=== PATIENT | female | born 1965 | race Caucasian/White ===

== ENCOUNTER → 2025-01-15 12:00 | Outpatient (BNV) | payer MEDICARE, MEDICAID, SELFPAY | PROVIDERS: Visit Provider Psychiatry & Neurology Psychiatry | DX: F32.A Depression, unspecified (principal); F43.89 Other reactions to severe stress; R53.83 Other fatigue; F45.42 Pain disorder with related psychological factors | CPT/HCPCS: 99213; 99214 ==

== ENCOUNTER 2025-01-25 11:00 | Outpatient (RCR) | payer MEDICARE, SELFPAY ==
[2025-01-05 11:57] VITALS: BMI 33.0
[2025-01-05 11:58] VITALS: BP 136/74; PULSE 64; TEMP 36.5
--- NOTE | 2025-01-05 13:27 | PC.ADMIT ---
Patient is a 59 year old female who was referred to [facility] by [facility] where she was admitted initially to CCU for 2 days s/p impulsive intentional overdose with 20 tabs (600 mg) of Morphine in the context of feeling overwhelmed with caring for her elderly mother with no support from her siblings. Patient was transferred to inpatient LOC on [facility] unit from 11/24-12/03/24. Patient reports hospitalization was helpful. Patient reports her 90 year old mother is in her own apartment living on her own. Patient stated her siblings have been more supportive in helping with their mother since her discharge from inpatient LOC. Patient stated, My sister is helping more for the two weeks that I am here. I told my sisters they would have to take care of appointments and anything else during this next two weeks. We have an aid coming in 2 hours a week and hoping to split the two hours into two days . Patient is alert and oriented x4. She is calm and cooperative. She presented with depressed mood and anxious affect. She denied SI, no HI. She was given a copy of her safety plan if needed. Patient reports history of chronic back pain and all over arthritis pain. Patient utilizes a cane for ambulation. Reports having a Sacral nerve stimulator implant for her back which she stated is helpful and is prescribed Buprenorphine weekly patches along with Tylenol and Motrin for pain. Patient reports she has an upcoming appointment for a Synvisc injection in her R knee for pain which she has had in the past and has been successful lasting 4 years the last time she had the injection. Medications updated with [facility] discharge paperwork and with patient's VNA Natacha Heath. Patient reports taking medications as prescribed
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
--- NOTE | 2025-01-07 16:13 | HO.PHP ---
Pt's case has been opened and reviewed in treatment teams.
--- NOTE | 2025-01-15 19:25 | HO.PHPPROGNO ---
Subjective Subjective Date of Service: 01/15/25 Reason For Visit: SI Interim History: It's been pretty good up until yesterday Updates curriculum writer on interim events, chronic stressors, caregiver fatigue, frustration with 2 sisters. Living with one sister who is helping now, and another sister who is also more involved with mother's care now since patient was hospitalized. Denies any hopelessness or SI. No thoughts of harming self or others. Medication Compliance: Yes Side effects from medications: No Attending Groups: Yes Review of Systems Acute medical concerns: No Mental Status Exam Mental Status Exam Narrative: Alert, oriented, in no acute distress. Calm, cooperative, engaged. No psychomotor agitation or neurovegetative retardation. Eye contact maintained. Mood depressed, reactive irritability, affect constricted. Speech normal. Thought process linear, coherent. Thought content related to stressors, transient impulsiveness, denies hopelessness, denies SI or HI. No paranoia or delusional content elicited. No evidence of psychosis. Insight and judgment - fair but adequate. Diagnostics Vital Signs (24Hr): BMI result Body Mass Index 33.0 Assessment & Plan Assessment & Plan (1) Depressive disorder: Status: Acute Code(s): F32.A - Depression, unspecified (2) Other acute reactions to stress: Status: Acute Code(s): F43.89 - Other reactions to severe stress (3) Caregiver with fatigue: Status: Acute Code(s): R53.83 - Other fatigue Plan continue PHP increase Lamcital to 75 mg qd continue sertraline 150 mg qd continue nortiptyline 20 mg qhs (consider whether switching off TCA due to impulsive suicidality) continue regular medications for now Routine lab work as indicated EKG, routine for baseline QTc for medication considerations as indicated UDS as indicated MassPat reviewed VS reviewed: afebrile, BP 136/74;?64 bpm Continue to monitor Patient educated on: diagnosis and medication risk/benefits Informed Consent: understands Reason for contiued partial hosp. stay Substantial Risk for: inability to function, rapid decompensation and med/psych decompensation Certification I certify that partial hospital treatment is medically necessary due to the symptoms and problems resulting from the patient's mental illness and the failure to treat the patient at the partial hospital level of care would likely result in the patient requiring inpatient psychiatric care which could not be prevented at a less intensive level of care. Total time managing care of this patient today __30__ minutes. Discharge Plan Discharge Attending provider: Rosi Lay Medications: New nicotine 21 mg/24 hr patch 24 hour 1 patch transdermal DAILY Qty: 1 0RF Rx Instructions: remove patch every night nicotine (polacrilex) 2 mg lozenge 2 mg buccal Q4H PRN (Reason: nicotine cravings) Qty: 72 0RF Continued sertraline 100 mg tablet 150 mg PO DAILY 30 Days Qty: 45 0RF Rx Instructions: Take one and a half tablet daily. No Action atorvastatin 80 mg tablet 80 mg PO DAILY acetaminophen 500 mg Tablet 1,000 mg PO BID PRN (Reason: Pain) albuterol sulfate 90 mcg/actuation Hfa Aerosol Inhaler 2 puff INHALATION Q4H PRN (Reason: SOB) buprenorphine 10 mcg/hour Patch Weekly 1 patch TRANSDERMAL Q7D aspirin 81 mg Capsule 81 mg PO DAILY ibuprofen 800 mg tablet 800 mg PO Q6H PRN (Reason: Pain) lamotrigine 25 mg Tablet 50 mg PO BID Patient Comments: Per VNA increased to 25 mg two tabs BID. lorazepam 0.5 mg Tablet 1 mg PO BEDTIME PRN (Reason: Anxiety) Patient Comments: Per VNA changed to 2 tabs daily at bedtime. Rx Instructions: 2 tabs daily at bedtime. nortriptyline 10 mg capsule 20 mg PO DAILY lisinopril 40 mg tablet 40 mg PO DAILY naloxone 4 mg/actuation [place],Non-Aerosol 4 mg INTRANASAL Q2M Rx Instructions: spray 1 dose every two to three minutes into ONE nostril; alternate nostrils w each dose until help arrives. Stand Alone Forms: Patient Portal Discharge page Print Language: Icelandic
--- NOTE | 2025-01-22 14:17 | HO.PHP ---
This justowriter operator reached out to [facility] with an PRAVIN inquiring about Shayna's check-in OP therapy she has attended. Staff at [facility] stated they could put a priority on an intake for a hospital discharge, but they could not assign a permanent therapist any sooner than the list she is on. This justowriter operator was assured she would continue to be followed by the current person on a check-in status until this takes place.
--- NOTE | 2025-01-22 19:02 | HO.PHPPROGNO ---
Subjective Subjective Date of Service: 01/22/25 Reason For Visit: SI Interim History: Started modafinil, she did find the ability to focus on tasks very helpful, but felt perhaps was a little too strong, felt weird which lasted into the evening and made onset of sleep more difficult. Does feel her mood is much better . She expressed interest in alternative plan to move to short acting stimulant like Ritalin. Denies any hopelessness or SI. No thoughts of harming self or others. Medication Compliance: Yes Side effects from medications: No Attending Groups: Yes Review of Systems Acute medical concerns: No Mental Status Exam Mental Status Exam Narrative: Alert, oriented, in no acute distress. Calm, cooperative, engaged. No psychomotor agitation or neurovegetative retardation. Eye contact maintained. Mood depressed, less irritable, affect brighter. Speech normal. Thought process linear, coherent. Thought content related to stressors, denies hopelessness, denies SI or HI. No paranoia or delusional content elicited. No evidence of psychosis. Insight and judgment - fair but adequate. Diagnostics Vital Signs (24Hr): BMI result Body Mass Index 33.0 Assessment & Plan Assessment & Plan (1) Depressive disorder: Status: Acute Code(s): F32.A - Depression, unspecified (2) Other acute reactions to stress: Status: Acute Code(s): F43.89 - Other reactions to severe stress (3) Caregiver with fatigue: Status: Acute Code(s): R53.83 - Other fatigue Plan continue PHP stop modafinil start Ritalin 2.5-5 mg qd-bid for cognition, focus/attention, funcitoning and general augmentation of depression increase Lamcital to 75 mg qd continue sertraline 150 mg qd continue nortiptyline 20 mg qhs (consider whether switching off TCA due to impulsive suicidality) continue regular medications for now Routine lab work as indicated EKG, routine for baseline QTc for medication considerations as indicated UDS as indicated MassPat reviewed VS reviewed: afebrile, BP 136/74;?64 bpm Continue to monitor Patient educated on: diagnosis and medication risk/benefits Informed Consent: understands Reason for contiued partial hosp. stay Substantial Risk for: inability to function and med/psych decompensation Certification I certify that partial hospital treatment is medically necessary due to the symptoms and problems resulting from the patient's mental illness and the failure to treat the patient at the partial hospital level of care would likely result in the patient requiring inpatient psychiatric care which could not be prevented at a less intensive level of care. Total time managing care of this patient today __30__ minutes. Discharge Plan Discharge Attending provider: Rosi Lay Medications: New nicotine 21 mg/24 hr patch 24 hour 1 patch transdermal DAILY Qty: 1 0RF Rx Instructions: remove patch every night nicotine (polacrilex) 2 mg lozenge 2 mg buccal Q4H PRN (Reason: nicotine cravings) Qty: 72 0RF lamotrigine 25 mg tablet 75 mg PO DAILY 14 Days Qty: 42 0RF lamotrigine 100 mg tablet 100 mg PO DAILY Qty: 30 0RF Rx Instructions: (start once Rx for 75 mg daily is completed) Continued atorvastatin 80 mg tablet 80 mg PO DAILY acetaminophen 500 mg Tablet 1,000 mg PO BID PRN (Reason: Pain) albuterol sulfate 90 mcg/actuation Hfa Aerosol Inhaler 2 puff INHALATION Q4H PRN (Reason: SOB) buprenorphine 10 mcg/hour Patch Weekly 1 patch TRANSDERMAL Q7D aspirin 81 mg Capsule 81 mg PO DAILY lamotrigine 25 mg Tablet 50 mg PO BID Patient Comments: Per VNA increased to 25 mg two tabs BID. lorazepam 0.5 mg Tablet 1 mg PO BEDTIME PRN (Reason: Anxiety) Patient Comments: Per VNA changed to 2 tabs daily at bedtime. Rx Instructions: 2 tabs daily at bedtime. nortriptyline 10 mg capsule 20 mg PO DAILY lisinopril 40 mg tablet 40 mg PO DAILY sertraline 100 mg tablet 150 mg PO DAILY 30 Days Qty: 45 0RF Rx Instructions: Take one and a half tablet daily. ibuprofen 800 mg tablet 800 mg PO Q6H PRN (Reason: Pain) 15 Days Qty: 42 0RF naloxone 4 mg/actuation [place],Non-Aerosol 4 mg INTRANASAL Q2M Qty: 2 0RF Rx Instructions: spray 1 dose every two to three minutes into ONE nostril; alternate nostrils w each dose until help arrives. Stand Alone Forms: Patient Portal Discharge page Patient Education: Depression (ED), Depression (GEN) Print Language: Upper Sorbian
--- NOTE | 2025-01-25 17:26 | HO.PHPPROGNO ---
Subjective Subjective Date of Service: 01/25/25 Reason For Visit: SI Interim History: Patient seen for follow-up, anticipating discharge at the end of program today.? Wonderful here.. learned a lot of things Says she is transitioning into having her son help with medication as she has been unable to titrate dose of lamotrigine until VNA comes tomorrow. Remains at 50 mg, denies adverse effects. Next OP psych appointment scheduled for 4 weeks. Active chronic pain continues to be a main issue. Is followed by her PCP Dr. Madison Howard at [facility]. Reports no other acute issues or concerns. Medication compliant, medications well-tolerated. Denies any adverse effects.? Mood is stable.? Denies any hopelessness or SI. Denies thoughts of harming self or others at this time. Denies any aggressive ideation or HI. Denies any paranoia or AH or VH. Sleep, appetite, energy stable. Medication Compliance: Yes Side effects from medications: No Attending Groups: Yes Review of Systems Acute medical concerns: No Mental Status Exam Mental Status Exam Narrative: Alert, oriented, in no acute distress. Calm, cooperative, engaged. No psychomotor agitation or neurovegetative retardation. Eye contact maintained. Mood stable, affect appropriate. Speech normal. Thought process linear, coherent. Thought content related to stressors,denies hopelessness, denies SI or HI. No paranoia or delusional content elicited. No evidence of psychosis. Insight and judgment intact. Diagnostics Vital Signs (24Hr): BMI result Body Mass Index 33.0 Assessment & Plan Assessment & Plan (1) Depressive disorder: Status: Acute Code(s): F32.A - Depression, unspecified (2) Other acute reactions to stress: Status: Acute Code(s): F43.89 - Other reactions to severe stress (3) Caregiver with fatigue: Status: Acute Code(s): R53.83 - Other fatigue (4) Pain disorder associated with psychological factors and medical condition: Status: Acute Code(s): F45.42 - Pain disorder with related psychological factors Assessment and Plan: on opioid-based treatment for chronic pain Plan Discharge from [facility] due to titrate Lamictal to 75 mg qd tomorrow continue sertraline 150 mg qd continue nortiptyline 20 mg qhs (consider whether switching off TCA due to impulsive suicidality) script sent for naloxone spray prn, directions reviewed with patient continue other regular medications for now Continue regular medications? Refills sent to pharmacy Will defer further medication management to outpatient provider *Safety plan reviewed *Discharge diagnoses, treatment course, discharge plan have been reviewed with patient (including medication regime, medication management, potential side effects) as well as treatment rationale were also revisited *Discharge paperwork signed and given to patient, copy sent for scanning to chart Patient educated on: diagnosis, medication risk/benefits and medical condition Informed Consent: understands Reason for contiued partial hosp. stay Substantial Risk for: stable for discharge Certification I certify that partial hospital treatment is medically necessary due to the symptoms and problems resulting from the patient's mental illness and the failure to treat the patient at the partial hospital level of care would likely result in the patient requiring inpatient psychiatric care which could not be prevented at a less intensive level of care. Total time managing care of this patient today _30___ minutes. Discharge Plan Discharge Attending provider: Rosi Lay Medications: New nicotine 21 mg/24 hr patch 24 hour 1 patch transdermal DAILY Qty: 1 0RF Rx Instructions: remove patch every night nicotine (polacrilex) 2 mg lozenge 2 mg buccal Q4H PRN (Reason: nicotine cravings) Qty: 72 0RF lamotrigine 25 mg tablet 75 mg PO DAILY 14 Days Qty: 42 0RF lamotrigine 100 mg tablet 100 mg PO DAILY Qty: 30 0RF Rx Instructions: (start once Rx for 75 mg daily is completed) Continued atorvastatin 80 mg tablet 80 mg PO DAILY acetaminophen 500 mg Tablet 1,000 mg PO BID PRN (Reason: Pain) albuterol sulfate 90 mcg/actuation Hfa Aerosol Inhaler 2 puff INHALATION Q4H PRN (Reason: SOB) buprenorphine 10 mcg/hour Patch Weekly 1 patch TRANSDERMAL Q7D aspirin 81 mg Capsule 81 mg PO DAILY lamotrigine 25 mg Tablet 50 mg PO BID Patient Comments: Per VNA increased to 25 mg two tabs BID. lorazepam 0.5 mg Tablet 1 mg PO BEDTIME PRN (Reason: Anxiety) Patient Comments: Per VNA changed to 2 tabs daily at bedtime. Rx Instructions: 2 tabs daily at bedtime. nortriptyline 10 mg capsule 20 mg PO DAILY lisinopril 40 mg tablet 40 mg PO DAILY sertraline 100 mg tablet 150 mg PO DAILY 30 Days Qty: 45 0RF Rx Instructions: Take one and a half tablet daily. ibuprofen 800 mg tablet 800 mg PO Q6H PRN (Reason: Pain) 15 Days Qty: 42 0RF naloxone 4 mg/actuation [place],Non-Aerosol 4 mg INTRANASAL Q2M Qty: 2 0RF Rx Instructions: spray 1 dose every two to three minutes into ONE nostril; alternate nostrils w each dose until help arrives. Stand Alone Forms: Patient Portal Discharge page Patient Education: Depression (ED), Depression (GEN) Print Language: Syriac
== END 2025-01-25 23:59 | disposition home or self-care (01) ==
LOC: HO.PHPA 11:00
PROVIDERS: Visit Provider Psychiatry & Neurology Psychiatry
DX: F32.A Depression, unspecified (principal); F43.89 Other reactions to severe stress; F45.42 Pain disorder with related psychological factors; R53.83 Other fatigue; Z79.891 Long term (current) use of opiate analgesic; Z79.899 Other long term (current) drug therapy
CPT/HCPCS: 90791; 90853